=== PATIENT | female | born 1990 | race Hispanic/Latino ===

== ENCOUNTER → 2019-11-09 | Outpatient (REF) | payer OTHER ==
[2019-11-09 14:19] LABS: APPEARANCE, URINE HAZY (CLEAR); BACTERIA, URINE AUTO 1+ (NEGATIVE); BILIRUBIN, URINE AUTO NEGATIVE (NEGATIVE); BLOOD, URINE BLOOD NEGATIVE (NEGATIVE); COLOR, URINE YELLOW (YELLOW); GLUCOSE, URINE (UA) AUTO NEGATIVE (NEGATIVE); KETONE, URINE AUTO NEGATIVE (NEGATIVE); LEUKOCYTE ESTERASE, URINE AUTO NEGATIVE (NEGATIVE); NITRITE, URINE AUTO NEGATIVE (NEGATIVE); PROTEIN, URINE AUTO NEGATIVE (NEGATIVE); RBC, URINE AUTO 2 /HPF (0-3); SPECIFIC GRAVITY URINE AUTO 1.018 (1.002-1.035); SQUAMOUS EPITHELIAL CELL UR AU 4 /HPF (0-6); UROBILINOGEN, URINE AUTO 0.2 mg/dL (0.0-2.0); WBC, URINE AUTO 2 /HPF (0-3)
== END ==
LOC: M LAB 14:00
PROVIDERS: ATTEND Physician Assistant Medical
DX: N39.0 Urinary tract infection, site not specified (principal)

== ENCOUNTER → 2019-12-24 | Outpatient (REF) | payer OTHER | LOC: M LAB REF 12:59 | PROVIDERS: ATTEND Physician Assistant | DX: R10.2 Pelvic and perineal pain (principal) ==

== ENCOUNTER 2020-08-27 13:18 | Emergency (ER) | payer OTHER ==
[~2020-08-27] VITALS: Ht 162.6 cm; Wt 93.7 kg
[2020-08-27] MEDS ORDERED: NORCO, ANEXSIA 5/325MG TABLET (HYDROcodone/ACETAMINOPHEN) PO ONE (17:10)
[2020-08-27 17:48] LABS: BASO # 0.1 10^3/uL (0.0-0.2); BASO % 0.5 % (0.0-1.0); EOS # 0.3 10^3/uL (0.0-0.5); EOS % 2.2 % (0.0-3.0); HEMATOCRIT 40.7 % (36.0-47.0); HEMOGLOBIN 13.6 g/dl (12.0-15.5); LYMPH # 3.8 10^3/uL (1.5-5.0); LYMPH % 32.9 % (24.0-44.0); MEAN CORPUSCULAR HEMOGLOBIN 31.9 pg (27.0-33.0); MEAN CORPUSCULAR HGB CONC 33.4 g/dl (32.0-36.5); MEAN CORPUSCULAR VOLUME 95.5 fl (80.0-96.0); MONO # 0.8 10^3/uL (0.0-0.8); MONO % 6.6 % (2.0-8.0); NEUTROPHILS # 6.7 10^3/uL (1.5-8.5); NEUTROPHILS % 57.5 % (36.0-66.0); PLATELET COUNT, AUTOMATED 288 10^3/uL (150-450); RED BLOOD COUNT 4.26 10^6/uL (4.00-5.40); WHITE BLOOD COUNT 11.6 10^3/uL (4.0-10.0)
[2020-08-27 18:08] LABS: C REACTIVE PROTEIN QUANTITATIV 1.08 MG/DL (0.00-0.30)
[2020-08-27 18:18] LABS: ERYTHROCYTE SEDIMENTATION RATE 28 mm/hr (0-20)
--- NOTE | 2020-08-27 18:45 | REP ---
INDICATION: old dog bit r 4th digit ? osteo. COMPARISON: None. TECHNIQUE: Four views of the right ring finger. FINDINGS: Four views of the right ring finger demonstrate intra-articular chip fracture fragments adjacent to the ulnar aspect of the DIP joint of the ring finger with associated soft tissue swelling. There appears to be a fracture fragment avulse from the articular margin of the base of the distal phalanx and another fracture fragment is seen adjacent to the distal aspect of the middle phalanx also at the DIP joint. There is a little widening of the DIP joint as well.. No other cortical erosive changes are seen.. No opaque foreign body noted. IMPRESSION: Chip fractures are noted as above on either side of the widened DIP joint with associated soft tissue swelling. Infection cannot be excluded, if this was an open dog bite injury. Tendon disruption could be considered as well.. <Electronically signed by Renny Grigsby > 08/27/20 [id number]
[2020-08-27] MEDS ORDERED: AUGM875T28 PO (21:26)
[2020-08-27] MEDS ORDERED: AUGMENTIN 875 MG TAB PO ONE (21:35)
[2020-08-27 21:41] VITALS: BP 118/65
--- NOTE | 2020-08-29 13:07 | CR ---
CONSULTATION DATE: 08/27/2020 DATE OF INJURY: Three weeks prior to date of presentation. CHIEF COMPLAINT: Right ring finger pain status post a dog bite. 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 She presents to the emergency department after a several week history of problems with the right ring finger after a dog bite. About three weeks ago, a dog bit her right ring finger and she had received several treatments. She was seen initially at an outside hospital and she reports being seen by hand surgery down in [place]. It is unclear what they recommended and how they treated her. She does report that she was on some sort of antibiotics for several days to weeks, but also mentioned that she had not done any soaks and had not had very many dressing changes. She presents today with concerns for chronic infection and difficulty moving her ring finger at the distal interphalangeal joint. PAST MEDICAL HISTORY: 1. Lupus. 2. Psoriatic arthritis. PAST SURGICAL HISTORY: None. MEDICATIONS: Humira. SOCIAL HISTORY: She is a dependent female. She works. Denies any alcohol or tobacco. She just found out she is . REVIEW OF SYSTEMS: All systems were reviewed and were negative except as noted in the HPI. PHYSICAL EXAMINATION: GENERAL APPEARANCE: Well-developed, well-nourished, in no acute distress. NEUROLOGIC: Alert and oriented x4. PSYCHIATRIC: Normal mood and affect. CARDIAC: Regular rate and rhythm. RESPIRATORY: Nonlabored breathing. Equal chest rise and fall. ABDOMEN: Nontender and nondistended. SKIN: Intact. No ecchymosis or swelling except in the digit of interest. MUSCULOSKELETAL: Focused exam of the right ring finger demonstrates an old wound that was previously closed. There is no active drainage. There is no surrounding erythema. The area of focus is just proximal to the distal interphalangeal joint. The patient has a well-perfused digit. She is completely numb on the ulnar aspect of the digit tip and is able to feel pressure on the radial border. She has a normal superficialis sign and an abnormal profunda sign. It is difficult to tell if her abnormal profunda sign is secondary to pain or in fact a flexor digitorum profundus rupture. The puncture wounds are over that area just proximal to the distal interphalangeal joint. There are no open wounds, but it does not appear to be completely healed either. IMAGING DATA: X-rays of the right hand demonstrate, specifically the ring finger, very small fractures at the distal volar aspect of P2 and also of P3. These are not really displaced fractures and they are only seen on the lateral and oblique x-rays. There is a small portion that can be seen on the ulnar aspect of the distal interphalangeal joint on the AP as well. ASSESSMENT: This is a 30-year-old dependent female with a right ring finger what I suspect is a chronic infection and concern for laceration of flexor digitorum profundus based on the exam. I think that she would do well with doing soaks and just general wound care over the next several days. I would like her to do another course of antibiotics as well. I would like to take a look at her wound in my clinic on [place] next week sometime and also order an MRI to get a better evaluation of the status of her flexor digitorum profundus. It if has been three weeks and she has a lacerated or ruptured flexor digitorum profundus (FDP), then it is possible that she might need a two-stage procedure. There is a good chance we will recommend that she see a hand specialist for this chronic infection and possible FDP rupture. I discussed this at length with the patient and her and they will plan to see me next week for repeat evaluation.
== END 2020-08-27 21:43 | disposition home or self-care (01) ==
LOC: M ED 13:18
DX: S61.252D Open bite of right middle finger without damage to nail, subsequent encounter (principal); L08.9 Local infection of the skin and subcutaneous tissue, unspecified; W54.0XXD Bitten by dog, subsequent encounter; Y92.9 Unspecified place or not applicable; Y93.9 Activity, unspecified; Y99.9 Unspecified external cause status; Z32.01 Encounter for pregnancy test, result positive; M32.9 Systemic lupus erythematosus, unspecified

== ENCOUNTER 2020-09-04 08:41 | Emergency (ER) | payer OTHER ==
[~2020-09-04] VITALS: Ht 162.6 cm; Wt 92.4 kg
[~2020-09-04 08:41] MED LIST: AUGM875T28 PO
[2020-09-04 08:42] VITALS: BP 127/62
[2020-09-04] MEDS ORDERED: PRENTAB53 PO (08:53)
== END 2020-09-04 10:46 | disposition home or self-care (01) ==
LOC: M ED 08:41
DX: O20.0 Threatened abortion (principal)

== ENCOUNTER → 2020-09-13 | Outpatient (REF) | payer OTHER ==
[~2020-09-13] MED LIST changes: +PRENTAB53 PO
== END ==
LOC: M LAB REF 18:05
PROVIDERS: ATTEND Advanced Practice Midwife
DX: O02.1 Missed abortion (principal)

== ENCOUNTER → 2020-09-22 | Outpatient (REF) | payer OTHER | LOC: M LAB REF 12:02 | PROVIDERS: ATTEND Advanced Practice Midwife | DX: O02.1 Missed abortion (principal) ==

== ENCOUNTER → 2020-12-07 | Outpatient (CLI) | payer OTHER | LOC: M WUC 12-06 15:02 | PROVIDERS: ATTEND Physician Assistant | DX: Z11.59 Encounter for screening for other viral diseases (principal) ==